=== PATIENT | male | born 1970 | race Caucasian/White ===

== ENCOUNTER 2017-05-11 15:23 | Inpatient (IN) | payer BC ==
[~2017-05-11] VITALS: Ht 172.7 cm; Wt 101.2 kg
[2017-05-11 15:48] VITALS: Ht 172.7 cm; Wt 101.2 kg
[2017-05-11 21:50] LABS: microscopic required? YES; urine erythrocyte TRACE (NEGATIVE)
[2017-05-11 21:56] LABS: CALCIUM 9.5 mg/dL (8.5-10.1); CARBON DIOXIDE 28.4 mmol/L (21-32); CHLORIDE SERUM 102 mmol/L (98-107); CREATININE SERUM 1.1 mg/dL (0.7-1.3); GFR1 > 60 mL/min; GLUCOSE SERUM 127 mg/dL (74-106); POTASSIUM SERUM 4.1 mmol/L (3.5-5.1); SODIUM SERUM 141 mmol/L (136-145)
[2017-05-11 22:01] LABS: ALBUMIN 4.3 g/dL (3.4-5.0); ALKALINE PHOSPHATASE 62 U/L (46-116); ALT/SGPT 32 U/L (16-63); AST/SGOT 14 U/L (15-37); BILIRUBIN TOTAL 0.51 mg/dL (0.20-1.00)
[2017-05-11] MEDS ORDERED: WELSR PO (22:06)
[2017-05-11 22:09] LABS: PLATELET COUNT 348 x10^3mcL (130-400); RED CELL DISTRIBUTION WIDTH 13.2 % (11.5-14.5)
[2017-05-11 22:34] LABS: MONOCYTE 9 % (0-7); SEGMENTED NEUTROPHILS 90 % (37-75)
[2017-05-11 22:35] LABS: BAND NEUTROPHIL 0 % (0-10); BASOPHIL 0 % (0-2); PLATELET MORPHOLOGY PLATELETS NORMAL; rbc morphology (normal/abnorm) NORMAL (NORMAL)
[2017-05-11 23:33] VITALS: BP 153/83
[2017-05-12 01:43] LABS: MAGNESIUM 1.8 mg/dL (1.8-2.4); PHOSPHOROUS 3.8 mg/dL (2.5-4.9)
[2017-05-12 01:46] LABS: CHOLESTEROL/HDL RATIO 4.3
[2017-05-12 01:48] LABS: FREE T4 0.98 ng/dL (0.76-1.46); T4(THYROXINE) 8.6 ug/dL (4.7-13.3)
[2017-05-12 02:09] LABS: T3 TOTAL 1.07 ng/mL
[2017-05-12 05:30] VITALS: BP 115/73
[2017-05-12 06:54] LABS: CALCIUM 8.3 mg/dL (8.5-10.1); CARBON DIOXIDE 26.4 mmol/L (21-32); CHLORIDE SERUM 107 mmol/L (98-107); GFR1 > 60 mL/min; GLUCOSE SERUM 130 mg/dL (74-106); POTASSIUM SERUM 3.6 mmol/L (3.5-5.1); SODIUM SERUM 142 mmol/L (136-145)
[2017-05-12 06:55] LABS: PLATELET COUNT 316 x10^3mcL (130-400); RED CELL DISTRIBUTION WIDTH 13.3 % (11.5-14.5)
[2017-05-12 07:37] LABS: AMPHETAMINE QUAL UR NONE DETECTED (NEG <=1000)
[2017-05-12 12:22] LABS: BAND NEUTROPHIL 0 % (0-10); BASOPHIL 0 % (0-2); MONOCYTE 4 % (0-7); SEGMENTED NEUTROPHILS 93 % (37-75)
[2017-05-12 12:23] LABS: PLATELET MORPHOLOGY PLATELETS NORMAL; rbc morphology (normal/abnorm) ABNORMAL (NORMAL)
[2017-05-12 17:40] VITALS: BP 109/70
[2017-05-12 20:35] VITALS: BP 122/74
[2017-05-13 05:37] VITALS: BP 112/65
[2017-05-13 07:44] LABS: CALCIUM 8.1 mg/dL (8.5-10.1); CARBON DIOXIDE 28.6 mmol/L (21-32); CHLORIDE SERUM 106 mmol/L (98-107); GFR1 > 60 mL/min; GLUCOSE SERUM 95 mg/dL (74-106); MAGNESIUM 1.8 mg/dL (1.8-2.4); PHOSPHOROUS 2.4 mg/dL (2.5-4.9); POTASSIUM SERUM 3.7 mmol/L (3.5-5.1); SODIUM SERUM 142 mmol/L (136-145)
[2017-05-13 08:37] LABS: BASOPHIL % 1.2 % (0-2); PLATELET COUNT 271 x10^3mcL (130-400); RED CELL DISTRIBUTION WIDTH 12.6 % (11.5-14.5)
[2017-05-13 09:36] VITALS: BP 125/79
[2017-05-13 17:28] VITALS: BP 129/79
[2017-05-13 21:18] VITALS: BP 129/84
[2017-05-14 05:52] VITALS: BP 137/88
[2017-05-14 06:39] LABS: BASOPHIL % 0.4 % (0-2); PLATELET COUNT 254 x10^3mcL (130-400); RED CELL DISTRIBUTION WIDTH 13.2 % (11.5-14.5)
[2017-05-14 07:12] LABS: CALCIUM 8.4 mg/dL (8.5-10.1); CARBON DIOXIDE 26.8 mmol/L (21-32); CHLORIDE SERUM 108 mmol/L (98-107); CREATININE SERUM 0.9 mg/dL (0.7-1.3); GFR1 > 60 mL/min; GLUCOSE SERUM 103 mg/dL (74-106); MAGNESIUM 1.9 mg/dL (1.8-2.4); PHOSPHOROUS 3.2 mg/dL (2.5-4.9); POTASSIUM SERUM 3.8 mmol/L (3.5-5.1); SODIUM SERUM 143 mmol/L (136-145)
[2017-05-14 09:34] VITALS: BP 137/88
[2017-05-14 10:01] VITALS: BP 131/92
[2017-05-14] MEDS ORDERED: KEFLEX500 M1 PO (10:24)
[2017-05-14] MEDS ORDERED: LAC PO (10:24)
[2017-05-14] MEDS ORDERED: COLACE100 MG PO (10:25)
[2017-05-14] MEDS ORDERED: NORCO1 TA2 PO (10:25)
== END 2017-05-14 12:10 | disposition home or self-care (01) | DRG 341 ==
LOC: ED 15:23 → DU 22:20 → MU 22:20 → DU 23:13 → MU 23:25
PROVIDERS: Emergency Medicine; Surgery; ADMIT Family Medicine
PROC: 0DTJ4ZZ Resection of Appendix, Percutaneous Endoscopic Approach (ICD-10-PCS; principal; 2017-05-12 08:00)
DX: K35.80 Unspecified acute appendicitis (principal); N17.0 Acute kidney failure with tubular necrosis; N39.0 Urinary tract infection, site not specified; E78.5 Hyperlipidemia, unspecified; Z68.33 Body mass index [BMI] 33.0-33.9, adult; E66.9 Obesity, unspecified; E83.39 Other disorders of phosphorus metabolism; D64.9 Anemia, unspecified; K57.90 Diverticulosis of intestine, part unspecified, without perforation or abscess without bleeding; F32.9 Major depressive disorder, single episode, unspecified
CPT/HCPCS: 83880; 84439; J2175; J2250; J2270; J2405; J2543; J3010; J3490; J7030; Q0092